=== PATIENT | male | born 1955 | race Caucasian/White ===

== ENCOUNTER → 2016-06-01 | Day surgery (SDC) | payer OTHER ==
[2016-05-30 11:02] VITALS: Ht 170.2 cm; Wt 75.9 kg
[~2016-06-01] VITALS: Ht 170.2 cm; Wt 75.9 kg
[~2016-06-01] MED LIST: ATOR-14 PO; ATROPINE SULFATE 0.1 MG/ML 5ML SYR IV PRN; CHOL100027 PO; EpHEDrine SULFATE INJ 50 MG/ML AMP IV PRN; FLAX10004 PO; LIDOCAINE HCL 2% 2 ML VIAL (20MG/ML) ONE; MIDAZOLAM HCL 1 MG/ML 2ML VIAL ONE; MULTTAB PO; ONDANSETRON INJ 2 MG/ML 2 ML VIAL ONE; PANT40TA PO; PROPOFOL IV EMULSION 10 MG/ML 20 ML VIAL IV ONE; SELE1TAB5 PO; SODIUM CHLORIDE 0.9% 500ML 500 ML IV ONE; TRAZ50TA35 PO; VNTHFA/IN INH
--- NOTE | 2016-06-01 10:02 | Endo History and Physical ---
History & Physical Date of Service: Jun 01, 2016. Chief Complaint: Abd Pain, Ulcerative colitis Referring Physician: Dr Nicole History of Present Illness 61 yo CM who presents for EGD and Colonoscopy secondary to abdominal pain and ulcerative colitis. Past Surgical History Hx Cardiac Surgery: No Hx Internal Defibrillator: No Hx Pacemaker: No Hx Abdominal Surgery: No Hx of Implantable Prosthesis: No Hx Post-Op Nausea and Vomiting: No Hx Cancer Surgery: No Hx Thoracic Surgery: No Hx Orthopedic: Yes (LT KNEE SCOPE) Hx Urinary Tract Surgery: No Family History Polyp Social History Smoking Status: Former Smoker Hx Substance Use: No (QUIT 2002 CRYSTAL METH, MARIJUANA, AND NARCOTIC) Hx Alcohol Use: Yes (QUIT 2 MONTHS AGO) Allergies Coded Allergies: Levofloxacin (Verified Allergy, Unknown, "FELT TERRIBLE AND COULDN'T BARE BEING IN MY SKIN", 05/30/16) Current Medications Reported Home Medications Medications Dose Route/Sig Max Daily Dose Days Date Category Ventolin Hfa (Albuterol) 200 Puffs/88918 Mcg Aers 2-4 Puffs INH Q6H PRN 05/30/16 Reported Flaxseed Oil [place]-3 (Flaxseed (Linseed)) 1,000 Mg Cap 1 Cap PO AFTERNOON 05/30/16 Reported Selenium (Selenium-Yeast) 1 Tab Tab 1 Tab PO AFTERNOON 05/30/16 Reported Trazodone (Trazodone HCl) 50 Mg Tab 50 Mg PO HS 05/30/16 Reported Protonix (Pantoprazole Sodium) 40 Mg Tab 40 Mg PO QAM 05/30/16 Reported Vitamin D 1000 Unit (Cholecalciferol) 1,000 Unit Cap 1,000 Inter.unit PO AFTERNOON 09/04/11 Reported Mvi With Minerals (Multivitamins/Minerals) Tab 1 Tab PO AFTERNOON 09/04/11 Reported Lipitor (Atorvastatin) 10 Mg Tab 10 Mg PO HS 09/04/11 Reported Vital Signs Weight (Kilograms): 75.91 Height (Feet): 5 Height (Inches): 7 Date Time Temp Pulse Resp B/P Pulse Ox O2 Delivery O2 Flow Rate FiO2 06/01/16 09:21 36.9 84 20 145/95 99 Room Air Physical Exam General Appearance: WD/WN, no apparent distress Respiratory/Chest: Auscultation: breath sounds normal Cardiovascular: Heart Auscultation: RRR Abdomen: Bowel Sounds: normal Inspection & Palpation: soft, non-distended, no tenderness, guarding & rebound Assessment and Plan Assessment: 61 yo CM who presents for EGD and Colonoscopy secondary to abdominal pain and ulcerative colitis. Plan: Proceed with EGD and Colonoscopy.
--- NOTE | 2016-06-01 10:32 | Discharge Instructions ---
Endoscopy Patient Instructions Date / Procedure(s) Performed Jun 01, 2016. Colonoscopy, EGD Allergy Information Coded Allergies: Levofloxacin (Verified Allergy, Unknown, "FELT TERRIBLE AND COULDN'T BARE BEING IN MY SKIN", 05/30/16) Discharge Date / Findings Jun 01, 2016. EGD: Gastritis s/p biopsies Colonoscopy: Diverticulosis and Internal hemorrhoids Medication Instructions OK to resume all medications today as prescribed Reported Home Medications Medications Dose Route/Sig Max Daily Dose Days Date Category Ventolin Hfa (Albuterol) 200 Puffs/97972 Mcg Aers 2-4 Puffs INH Q6H PRN 05/30/16 Reported Flaxseed Oil [place]-3 (Flaxseed (Linseed)) 1,000 Mg Cap 1 Cap PO AFTERNOON 05/30/16 Reported Selenium (Selenium-Yeast) 1 Tab Tab 1 Tab PO AFTERNOON 05/30/16 Reported Trazodone (Trazodone HCl) 50 Mg Tab 50 Mg PO HS 05/30/16 Reported Protonix (Pantoprazole Sodium) 40 Mg Tab 40 Mg PO QAM 05/30/16 Reported Vitamin D 1000 Unit (Cholecalciferol) 1,000 Unit Cap 1,000 Inter.unit PO AFTERNOON 09/04/11 Reported Mvi With Minerals (Multivitamins/Minerals) Tab 1 Tab PO AFTERNOON 09/04/11 Reported Lipitor (Atorvastatin) 10 Mg Tab 10 Mg PO HS 09/04/11 Reported Provider Instructions Activity Restrictions - No exercising or heavy lifting for 24 hours. - Do not drink alcohol the day of the procedure. - Do not drive a car or operate machinery until the day after the procedure. - Do not make any important decisions or sign important papers in 24 hours after the procedure. Following Day: - Return to full activity which may include returning to work/school. Diet Start your diet with liquids and light foods (jello, soup, juice, toast). Then eat your usual diet if not nauseated. Treatment For Common After Affects For mild abdominal pain, bloating, or excessive gas: - Rest - Eat lightly - Lie on right side Follow-Up Information Follow-up with Dr Nicole as scheduled Anesthesia Information What You Should Know You have had a procedure that required some medicine to reduce anxiety and discomfort. This treatment is called moderate sedation. After receiving the treatment, you may be sleepy, but you will be able to breathe on your own. The effects of the treatment may last for several hours. Follow these instructions along with Activity/Diet recommendations noted above: * Do NOT do anything where dizziness or clumsiness would be dangerous. * Rest quietly at home today, then you can be up and about tomorrow. * Have a responsible person stay with you the rest of today. * You may have had an I.V. today. If so, you may take the dressing off later today. Recommendations Call your doctor if: * Trouble breathing * Continuous vomiting for more than 24 hours * Temperature above 101 degrees * Severe abdominal pain or bloating * Pain not relieved by pain medicine ordered * There is increased drainage or redness from any incision * A large amount of rectal bleeding greater than 2-3 tablespoons. (If you had a polyp/s removed or have hemorrhoids, a small amount of blood - from the rectum is to be expected.) * You have any unanswered questions or concerns. IN THE EVENT OF A SERIOUS EMERGENCY, GO TO THE NEAREST EMERGENCY ROOM Your discharge instructions were prepared by provider Tucker Barriga. Patient Instructions Signature Page Rai Cruz Patient (or Guardian) Signature/Date: I have read and understand the instructions given to me by my caregivers. Caregiver/RN/Doctor Signature/Date: The above-named patient and/or guardian has received patient instructions on this date. + Original Patient Signature Page (only) stays with chart. Please make copy for patient.
--- NOTE | 2016-06-01 10:38 | GI REPORT ---
Procedure Date: 06/01/2016 10:07 AM Procedure: Colonoscopy Indications: Suspected ulcerative colitis Medicines: Monitored Anesthesia Care Complications: No immediate complications. Estimated Blood Loss: Estimated blood loss: none. Procedure: Pre-Anesthesia Assessment: - Prior to the procedure, a History and Physical was performed, and patient medications and allergies were reviewed. The patient's tolerance of previous anesthesia was also reviewed. The risks and benefits of the procedure and the sedation options and risks were discussed with the patient. All questions were answered, and informed consent was obtained. Prior Anticoagulants: The patient has taken no previous anticoagulant or antiplatelet agents. ASA Grade Assessment: II - A patient with mild systemic disease. After reviewing the risks and benefits, the patient was deemed in satisfactory condition to undergo the procedure. After I obtained informed consent, the scope was passed under direct vision. Throughout the procedure, the patient's blood pressure, pulse, and oxygen saturations were monitored continuously. The scope was introduced through the anus and advanced to the terminal ileum. The colonoscopy was performed without difficulty. The patient tolerated the procedure well. The quality of the bowel preparation was good. The terminal ileum, ileocecal valve, appendiceal orifice, and rectum were photographed. Findings: Multiple small-mouthed diverticula were found in the sigmoid colon. Non-bleeding internal hemorrhoids were found during retroflexion. The hemorrhoids were small. Multiple random biopsies were obtained with cold forceps for histology in the entire colon. Impression: - Diverticulosis in the sigmoid colon. - Non-bleeding internal hemorrhoids. - Multiple random biopsies were obtained in the entire colon. Recommendation: - Resume previous diet. - Continue present medications. - Repeat colonoscopy date to be determined after pending pathology results are reviewed for surveillance. - Return to primary care physician as previously scheduled. Tucker Barriga DO 06/01/2016 10:38:09 AM This report has been signed electronically. Note Initiated On: 06/01/2016 10:07 AM I attest to the content of the Intraoperative Record and orders documented therein, exceptions below
--- NOTE | 2016-06-01 10:39 | GI REPORT ---
Procedure Date: 06/01/2016 10:07 AM Procedure: Upper GI endoscopy Indications: Abdominal pain in the right upper quadrant Medicines: Monitored Anesthesia Care Complications: No immediate complications. Estimated Blood Loss: Estimated blood loss: none. Procedure: Pre-Anesthesia Assessment: - Prior to the procedure, a History and Physical was performed, and patient medications and allergies were reviewed. The patient's tolerance of previous anesthesia was also reviewed. The risks and benefits of the procedure and the sedation options and risks were discussed with the patient. All questions were answered, and informed consent was obtained. Prior Anticoagulants: The patient has taken no previous anticoagulant or antiplatelet agents. ASA Grade Assessment: II - A patient with mild systemic disease. After reviewing the risks and benefits, the patient was deemed in satisfactory condition to undergo the procedure. After obtaining informed consent, the endoscope was passed under direct vision. Throughout the procedure, the patient's blood pressure, pulse, and oxygen saturations were monitored continuously. The scope was introduced through the mouth, and advanced to the second part of duodenum. The upper GI endoscopy was accomplished without difficulty. The patient tolerated the procedure well. Findings: The esophagus was normal. Localized mild inflammation characterized by erythema was found in the gastric antrum. Biopsies were taken with a cold forceps for histology. The examined duodenum was normal. Impression: - Normal esophagus. - Gastritis. Biopsied. - Normal examined duodenum. Recommendation: - Resume previous diet. - Continue present medications. - Await pathology results. - Return to primary care physician as previously scheduled. Tucker Barriga DO 06/01/2016 10:39:14 AM This report has been signed electronically. Note Initiated On: 06/01/2016 10:07 AM I attest to the content of the Intraoperative Record and orders documented therein, exceptions below
--- NOTE | 2016-06-01 10:41 | Anesthesiology Progress Note ---
Anesthesia Post Op Note Date & Time Jun 01, 2016 at 10:40 Vital Signs Vital Signs Past 12 Hours Date Time Temp Pulse Resp B/P Pulse Ox O2 Delivery O2 Flow Rate FiO2 06/01/16 09:21 36.9 84 20 145/95 99 Room Air Notes Mental Status: alert / awake / arousable, participated in evaluation Pt Amnestic to Procedure: Yes Nausea / Vomiting: adequately controlled Pain: adequately controlled Airway Patency, RR, SpO2: stable & adequate BP & HR: stable & adequate Hydration State: stable & adequate Anesthetic Complications: no major complications apparent
[2016-06-01 11:15] VITALS: BP 134/80; PULSE 76; O2SAT 100
== END | disposition home or self-care (01) ==
LOC: C.GI 08:38
PROVIDERS: ATTEND Internal Medicine
DX: K51.90 Ulcerative colitis, unspecified, without complications (principal); K31.89 Other diseases of stomach and duodenum; K57.30 Diverticulosis of large intestine without perforation or abscess without bleeding; K29.70 Gastritis, unspecified, without bleeding; K64.8 Other hemorrhoids; Z87.891 Personal history of nicotine dependence; Z88.8 Allergy status to other drugs, medicaments and biological substances

== ENCOUNTER → 2016-08-23 | Outpatient (CLI) | payer OTHER ==
[~2016-08-23] MED LIST changes: -ATROPINE SULFATE 0.1 MG/ML 5ML SYR IV PRN; -EpHEDrine SULFATE INJ 50 MG/ML AMP IV PRN; -LIDOCAINE HCL 2% 2 ML VIAL (20MG/ML) ONE; -MIDAZOLAM HCL 1 MG/ML 2ML VIAL ONE; -ONDANSETRON INJ 2 MG/ML 2 ML VIAL ONE; -PROPOFOL IV EMULSION 10 MG/ML 20 ML VIAL IV ONE; -SODIUM CHLORIDE 0.9% 500ML 500 ML IV ONE
[2016-08-23 10:54] LABS: BASO % 0.8 %; BASO ABS # 0.04 K/uL (0-0.2); COMPLETE YES; EOS % 2.5 %; IG% 0.2 %; LYMPH % 29.7 %; LYMPH ABS # 1.53 K/uL (1.2-3.4); MEAN CELL VOLUME 96.6 fL (80-100); MEAN CORPUSCULAR HEMOGLOBIN 32.6 pg (25-34); MEAN CORPUSCULAR HGB CONC 33.7 g/dl (32-36); MEAN PLATELET VOLUME 11.3 fL (7.4-10.4); MONO % 10.3 %; NEUT % 56.5 %; PLATELET COUNT 256 K/uL (130-400); RED BLOOD COUNT 4.76 M/uL (4.7-6.1); WHITE BLOOD COUNT 5.16 K/uL (4.8-10.8)
[2016-08-23 11:00] LABS: ESTIMATED AVERAGE GLUCOSE 105 mg/dl; HA1C FLAG Normal (Normal)
[2016-08-23 11:02] LABS: ALT/SGPT 28 U/L (12-78); BLOOD UREA NITROGEN 12 mg/dl (7-18); BUN/CREATININE RATIO 12.1 (10-20); CARBON DIOXIDE 29 mmol/L (21-32); CHLORIDE 104 mmol/L (98-107); CHOLESTEROL 182 mg/dl (0-200); GLUCOSE 93 mg/dl (70-99); POTASSIUM 4.4 mmol/L (3.5-5.1); SODIUM 139 mmol/L (136-145); TRIGLYCERIDES 64 mg/dl (0-150); URIC ACID 6.2 mg/dl (2.6-7.2); VERY LOW DENSITY LIPOPROT CALC 13 mg/dl
[2016-08-23 11:11] LABS: ALB/GLOB RATIO 1.1 (0.9-2); ALKALINE PHOSPHATASE 91 U/L (45-117); AST/SGOT 21 U/L (15-37); CHOLESTEROL/HDL RATIO 3.9; HDL CHOLESTEROL 47 mg/dl; LDL CHOLESTEROL CALCULATED 122 mg/dl
== END | disposition home or self-care (01) ==
LOC: C.LABBC 08:52
PROVIDERS: ATTEND Family Medicine
DX: R73.09 Other abnormal glucose (principal); E55.9 Vitamin D deficiency, unspecified; D51.9 Vitamin B12 deficiency anemia, unspecified

== ENCOUNTER → 2017-06-01 | Outpatient (CLI) | payer OTHER ==
[2017-06-01 16:37] LABS: BASO % 0.1 %; BASO ABS # 0.01 K/uL (0-0.2); EOS % 0.4 %; EOS ABS # 0.06 K/uL (0-0.5); HEMATOCRIT 42.3 % (42-52); HEMOGLOBIN 14.2 g/dL (14.0-18.0); IG# 0.04 K/uL (0.00-0.02); LYMPH % 17.1 %; LYMPH ABS # 2.34 K/uL (1.2-3.4); MEAN CELL VOLUME 93.6 fL (80-100); MEAN CORPUSCULAR HEMOGLOBIN 31.4 pg (25-34); MEAN CORPUSCULAR HGB CONC 33.6 g/dl (32-36); MEAN PLATELET VOLUME 11.1 fL (7.4-10.4); MONO % 6.7 %; MONO ABS # 0.92 K/uL (0.11-0.59); NEUT % 75.4 %; NEUT ABS # 10.31 K/uL (1.4-6.5); PLATELET COUNT 283 K/uL (130-400); RED CELL DISTRIBUTION WIDTH CV 13.3 % (11.5-14.5); RED CELL DISTRIBUTION WIDTH SD 45.6 fL (36.4-46.3); WHITE BLOOD COUNT 13.68 K/uL (4.8-10.8)
[2017-06-01 16:46] LABS: ALT/SGPT 40 U/L (12-78); AST/SGOT 27 U/L (15-37); BLOOD UREA NITROGEN 17 mg/dl (7-18); CALCIUM 9.5 mg/dl (8.5-10.1); CARBON DIOXIDE 29 mmol/L (21-32); CREATININE 0.82 mg/dl (0.60-1.40); GLUCOSE 101 mg/dl (70-99); POTASSIUM 4.4 mmol/L (3.5-5.1); SODIUM 138 mmol/L (136-145)
[2017-06-01 16:49] LABS: ALKALINE PHOSPHATASE 114 U/L (45-117); TOTAL PROTEIN 7.9 gm/dl (6.4-8.2)
== END | disposition home or self-care (01) ==
LOC: C.LABBC 14:17
PROVIDERS: ATTEND Registered Nurse
DX: K51.90 Ulcerative colitis, unspecified, without complications (principal); K62.5 Hemorrhage of anus and rectum

== ENCOUNTER 2017-06-15 14:51 | Emergency (ER) | payer OTHER ==
[~2017-06-15] VITALS: Ht 170.2 cm; Wt 78.0 kg
[~2017-06-15 14:51] MED LIST changes: -CHOL100027 PO; -MULTTAB PO
[2017-06-15 14:57] VITALS: TEMP 36.6; Ht 170.2 cm; Wt 78.0 kg
[2017-06-15] MEDS ORDERED: OXYCODONE HCL IR 5 MG TAB (IMMEDIATE RELEASE) PO STA (15:10)
[2017-06-15] MEDS ORDERED: CHOL100027 PO (15:23)
[2017-06-15] MEDS ORDERED: MULTTAB PO (15:23)
[2017-06-15] MEDS ORDERED: CLON0.252 PO (15:33)
[2017-06-15] MEDS ORDERED: BUDE1TAB PO (15:33)
[2017-06-15] MEDS ORDERED: FOLI5CAP PO (15:33)
[2017-06-15] MEDS ORDERED: OMEG10007 PO (15:33)
[2017-06-15] MEDS ORDERED: THIA1TAB11 PO (15:33)
[2017-06-15] MEDS ORDERED: B-COTAB18 PO (15:33)
[2017-06-15] MEDS ORDERED: SELE125T PO (15:33)
[2017-06-15] MEDS ORDERED: PRT/20 PO (15:33)
[2017-06-15] MEDS ORDERED: MESA1.2T3 PO (15:33)
[2017-06-15] MEDS ORDERED: ROSU5TAB PO (15:34)
--- NOTE | 2017-06-15 16:41 | DIAGNOSTIC IMAGING REPORT ---
MRI OF THE LEFT KNEE CLINICAL HISTORY: Left knee pain. Unable to weight-bear. COMPARISON STUDY: Radiographs of left knee dated 05/31/2017. TECHNIQUE: MRI of the left knee was performed utilizing proton density, T1, and T2-weighted sequences in the axial, sagittal, coronal planes. IV contrast was not administered for this examination. FINDINGS: Menisci: The lateral meniscus appears intact. There is an oblique tear involving the posterior horn of the medial meniscus, best seen on sagittal image #4 and coronal image #18. Tearing is also suspected at the root of the medial meniscus. Ligaments: The anterior and posterior cruciate ligaments are intact. The medial and lateral collateral ligaments are within normal limits. Extensor mechanism: The extensor mechanism is intact. Hoffa's fat pad is normal in appearance. Articular cartilage and bone: The articular cartilage is intact and well maintained all 3 compartments. Normal marrow signal is preserved of the visualized bony structures. Joint effusion: There is a small joint effusion. Soft tissues: The musculature surrounding the knee joint is normal in bulk and signal intensity. IMPRESSION: 1. There is an oblique tear involving the body and posterior horn of the medial meniscus. Tearing is also suspected at the root of the medial meniscus. 2. The lateral meniscus, the cruciate ligaments, and the collateral ligament are maintained. 3. Small joint effusion. 4. No osseous body is seen. The articular cartilage appears maintained. Electronically signed by: Dennis Choe M.D. 06/15/2017 4:40 PM Dictated Date/Time: 06/15/2017 4:32 PM
--- NOTE | 2017-06-15 16:54 | EMERGENCY ROOM VISIT NOTE ---
ED Visit Note First contact with patient: 15:00 I CHIEF COMPLAINT: Left knee pain HISTORY OF PRESENT ILLNESS: This 62-year-old male presents to the ER with chief complaint of increased left knee pain. The patient states that he has had some chronic knee pain for which he went to Dr. Mcmullen. He states that they did x- rays from his hips all the way down to his ankles. They gave him a cortisone injection into the left knee yesterday. He has an MRI scheduled for June 20 of the knee. The patient states that he was feeling better after the cortisone injection yesterday and then he was lifting furniture today and he heard a "pop " behind his knee. Since that time he is in extreme pain with weightbearing. He states he can bend it without difficulty but has the pain with weightbearing. REVIEW OF SYSTEMS: 6 system review was performed and was negative unless stated otherwise in history of present illness. PMH: The patient is healthy; there is no significant medical or surgical history. SOCIAL HISTORY: Patient lives alone. The patient denies any current tobacco or alcohol use. PHYSICAL EXAM: Vital Signs: Reviewed reviewed Nurse's notes. GENERAL: 62-year- old white male appears uncomfortable secondary to pain. MENTAL STATUS: Alert, oriented, and cooperative. LEFT KNEE: No gross bony deformity noted. No erythema or edema noted. Patient is point tenderness to palpation over the medial joint space. Popliteal region without palpable lump. Patient has full range of motion of the knee without pain. No ligament instability noted. EMERGENCY DEPARTMENT COURSE: The patient was evaluated. The patient was given [place] 5/325 mg 2 tablets p.o. for pain. MRI of the left knee was ordered interpreted by the radiologist and myself as below. DIAGNOSTICS:MRI OF THE LEFT KNEE CLINICAL HISTORY: Left knee pain. Unable to weight-bear. COMPARISON STUDY: Radiographs of left knee dated 05/31/2017. TECHNIQUE: MRI of the left knee was performed utilizing proton density, T1, and T2-weighted sequences in the axial, sagittal, coronal planes. IV contrast was not administered for this examination. FINDINGS: Menisci: The lateral meniscus appears intact. There is an oblique tear involving the posterior horn of the medial meniscus, best seen on sagittal image #4 and coronal image #18. Tearing is also suspected at the root of the medial meniscus. Ligaments: The anterior and posterior cruciate ligaments are intact. The medial and lateral collateral ligaments are within normal limits. Extensor mechanism: The extensor mechanism is intact. Hoffa's fat pad is normal in appearance. Articular cartilage and bone: The articular cartilage is intact and well maintained all 3 compartments. Normal marrow signal is preserved of the visualized bony structures. Joint effusion: There is a small joint effusion. Soft tissues: The musculature surrounding the knee joint is normal in bulk and signal intensity. IMPRESSION: 1. There is an oblique tear involving the body and posterior horn of the medial meniscus. Tearing is also suspected at the root of the medial meniscus. 2. The lateral meniscus, the cruciate ligaments, and the collateral ligament are maintained. 3. Small joint effusion. 4. No osseous body is seen. The articular cartilage appears maintained. Electronically signed by: Dennis Choe M.D. 06/15/2017 4:40 PM The patient was informed of the findings. The patient was placed in a knee immobilizer and given crutches. The patient was discharged home in stable condition. DIAGNOSIS: Medial meniscal tear left knee DISCHARGE INSTRUCTIONS: Take OxyIR as needed for pain. Do not drive while taking the OxyIR. Keep leg and knee immobilizer except for bathing until evaluated by orthopedics. Use crutches to aid in ambulation. Call Dr. Mcmullen on Sunday to inform him that he already had the MRI and for a follow-up appointment as soon as possible. Keep leg elevated whenever possible. Current/Historical Medications Scheduled B-Complex Vitamins (Vitamin B Complex), 1 TAB PO DAILY Budesonide (Uceris), 9 MG PO DAILY Cholecalciferol (Vitamin D 1000 Unit), 1,000 INTER.UNIT PO AFTERNOON Clonazepam (Clonazepam Odt), 0.25 MG PO DAILY Fish Oil ([place]-3), 1 CAP PO DAILY Folic Acid (Folic Acid), 5 MG PO DAILY Mesalamine (Mesalamine Dr), 2.4 GM PO BID Multivitamins/Minerals (Mvi With Minerals), 1 TAB PO AFTERNOON Pantoprazole (Protonix), 20 MG PO DAILY Rosuvastatin Calcium (Crestor), 5 MG PO MWF Selenium (Selenimin), 1 TAB PO DAILY Thiamine Mononitrate (Vitamin B1), 100 MG PO DAILY Allergies Coded Allergies: Levofloxacin (Verified Allergy, Unknown, "FELT TERRIBLE AND COULDN'T BARE BEING IN MY SKIN", 05/30/16) Meloxicam (Verified Adverse Reaction, Severe, NERVOUS, 06/15/17) Vital Signs Date Time Temp Pulse Resp B/P (MAP) Pulse Ox O2 Delivery O2 Flow Rate FiO2 06/15/17 16:32 86 17 142/89 97 Room Air 06/15/17 14:57 36.6 97 18 135/80 97 Room Air Medications Administered Medications (Trade) Dose Ordered Sig/Garcia Route Start Time Stop Time Status Last Admin Dose Admin Oxycodone HCl (Roxicodone Immediate Rel Tab) 5 mg NOW STAT PO 06/15/17 15:10 06/15/17 15:11 DC 06/15/17 15:18 5 MG Departure Information Referrals Marc Nicole M.D. (PCP) Patient Instructions My [facility]
[2017-06-15] MEDS ORDERED: OXYC1TAB3 PO (16:56)
[2017-06-15 17:08] VITALS: BP 142/89; PULSE 86; O2SAT 97
== END 2017-06-15 17:09 | disposition home or self-care (01) ==
LOC: C.EDB 14:53 → C.EDD 17:09
DX: S83.242A Other tear of medial meniscus, current injury, left knee, initial encounter (principal); X50.9XXA Other and unspecified overexertion or strenuous movements or postures, initial encounter; Y93.89 Activity, other specified; Y99.8 Other external cause status; Z88.1 Allergy status to other antibiotic agents; Z88.6 Allergy status to analgesic agent

== ENCOUNTER → 2017-09-19 | Outpatient (CLI) | payer OTHER ==
[~2017-09-19] MED LIST changes: -ATOR-14 PO; +B-COTAB18 PO; +BUDE1TAB PO; +CHOL100027 PO; +CLON0.252 PO; -FLAX10004 PO; +FOLI5CAP PO; +MESA1.2T3 PO; +MULTTAB PO; +OMEG10007 PO; +OXYC-737 PO; -PANT40TA PO; +PRT/20 PO; +ROSU5TAB PO; +SELE125T PO; -SELE1TAB5 PO; +THIA1TAB11 PO; -TRAZ50TA35 PO; -VNTHFA/IN INH
[2017-09-19 17:04] LABS: BASO % 0.4 %; BASO ABS # 0.03 K/uL (0-0.2); EOS % 0.8 %; EOS ABS # 0.06 K/uL (0-0.5); HEMATOCRIT 45.7 % (42-52); HEMOGLOBIN 15.2 g/dL (14.0-18.0); IG# 0.02 K/uL (0.00-0.02); LYMPH % 24.3 %; LYMPH ABS # 1.92 K/uL (1.2-3.4); MEAN CELL VOLUME 96.6 fL (80-100); MEAN CORPUSCULAR HEMOGLOBIN 32.1 pg (25-34); MEAN CORPUSCULAR HGB CONC 33.3 g/dl (32-36); MEAN PLATELET VOLUME 11.3 fL (7.4-10.4); MONO % 8.6 %; MONO ABS # 0.68 K/uL (0.11-0.59); NEUT % 65.6 %; PLATELET COUNT 298 K/uL (130-400); RED CELL DISTRIBUTION WIDTH CV 13.5 % (11.5-14.5); RED CELL DISTRIBUTION WIDTH SD 47.5 fL (36.4-46.3); WHITE BLOOD COUNT 7.91 K/uL (4.8-10.8)
[2017-09-19 17:25] LABS: ALKALINE PHOSPHATASE 94 U/L (45-117); ALT/SGPT 30 U/L (12-78); AST/SGOT 23 U/L (15-37); BLOOD UREA NITROGEN 6 mg/dl (7-18); CARBON DIOXIDE 29 mmol/L (21-32); CHOLESTEROL 210 mg/dl (0-200); CREATININE 0.77 mg/dl (0.60-1.40); GLUCOSE 73 mg/dl (70-99); LDL CHOLESTEROL CALCULATED 147 mg/dl; SODIUM 138 mmol/L (136-145); TOTAL PROTEIN 7.8 gm/dl (6.4-8.2)
[2017-09-19 18:39] LABS: HEP C IGG 13 YRS+OLDER_RFLX NEG (NEG)
== END | disposition home or self-care (01) ==
LOC: C.LABBC 12:52
PROVIDERS: ATTEND Family Medicine
DX: R50.9 Fever, unspecified (principal)

== ENCOUNTER → 2017-10-01 | Outpatient (CLI) | payer OTHER ==
[~2017-10-01] MED LIST changes: +OPTIRAY 320 IV PRN
--- NOTE | 2017-10-01 14:38 | DIAGNOSTIC IMAGING REPORT ---
ABD/PELVIS IV AND ORAL CONT CLINICAL HISTORY: 62 years-old Male presenting with ABD Pain, bloody STOOLS. TECHNIQUE: Multidetector CT of the abdomen and pelvis was performed after the administration of oral and intravenous contrast. IV contrast: 94 mL of Optiray 320. A dose lowering technique was used consistent with the principles of ALARA (as low as reasonably achievable). COMPARISON: 07/05/2009. CT DOSE (mGy.cm): The estimated cumulative dose is 426.24 mGy.cm. FINDINGS: Floor Representative topogram: Dextroscoliotic curvature of the spine. Lung bases: Trace emphysema. Few punctate solid nodules in the subpleural/peripheral of the bilateral lower lobes. These are similar to 2010 consistent with benign etiology. Normal heart size. No pericardial or pleural effusion. Liver: Normal morphology. No liver lesion. Patent hepatic vasculature. Biliary: No intrahepatic or extrahepatic biliary ductal dilatation. Normal gallbladder. Pancreas: Mild parenchymal atrophy. Spleen: Normal. Adrenal glands: Calcification in the right adrenal gland may imply prior infection or hemorrhage. Kidneys and ureters: Normal. No hydronephrosis. Bladder: Mild circumferential bladder wall thickening. Pelvic organs: Prostate and seminal vesicles normal. Bowel: Diverticulosis of the proximal to mid sigmoid colon as well as the descending colon. The appendix is normal. No bowel obstruction. Peritoneal cavity: No free fluid or intraperitoneal gas. Lymph nodes: No enlarged lymph nodes in the abdomen or pelvis. Vasculature: Atherosclerosis of the normal caliber abdominal aorta. IVC patent. Abdominal wall: Small fat-containing umbilical hernia. Musculoskeletal: Degenerative changes of the spine. Degenerative changes of the sacroiliac joints. Nonspecific lytic focus in the right ilium subjacent to the sacral iliac joint (series 3 image 276), unchanged. IMPRESSION: 1. Diverticulosis. No evidence of diverticulitis. No acute intra-abdominal pathology. 2. Mild circumferential bladder wall thickening suggested. This could be due to underdistention, outlet obstruction, or cystitis. 3. Trace emphysema. 4. Stable benign punctate lower lobe pulmonary nodules. Electronically signed by: Salty Dodson M.D. 10/01/2017 2:37 PM Dictated Date/Time: 10/01/2017 2:28 PM
== END | disposition home or self-care (01) ==
LOC: C.CTS 13:39
PROVIDERS: ATTEND Family Medicine
DX: R10.9 Unspecified abdominal pain (principal); K92.1 Melena; K57.90 Diverticulosis of intestine, part unspecified, without perforation or abscess without bleeding